=== PATIENT | female | born 1990 | race Caucasian/White ===

== ENCOUNTER 2020-02-04 00:46 | Outpatient (CLI) | payer OTHER, SELFPAY ==
[2020-02-04 19:22] LABS: SARS-CoV-2 RNA PCR Negative
== END 2020-02-04 00:47 | disposition home or self-care (01) ==
LOC: ANHCOVIDDT 00:47
PROVIDERS: PCP Physician Assistant Medical; Visit Provider Obstetrics & Gynecology
DX: Z01.812 Encounter for preprocedural laboratory examination (principal); Z11.59 Encounter for screening for other viral diseases
CPT/HCPCS: 87635; C9803; U0003

== ENCOUNTER 2020-02-04 09:03 | Outpatient (CLI) | payer OTHER, SELFPAY ==
[2020-02-04 09:26] LABS: Hematocrit 42.6 % (37.0-47.0); Hemoglobin 14.1 g/dL (12.0-15.0)
== END 2020-02-04 09:04 | disposition home or self-care (01) ==
LOC: ANHSURGERY 09:04
PROVIDERS: PCP Physician Assistant Medical; Visit Provider Obstetrics & Gynecology
DX: O02.1 Missed abortion (principal); Z3A.00 Weeks of gestation of pregnancy not specified
CPT/HCPCS: 36415; 85014; 85018; 86900; 86901

== ENCOUNTER 2020-02-07 02:08 | Day surgery (SDC) | payer OTHER, SELFPAY ==
--- NOTE | 2020-02-03 14:35 | PM.IMHP ---
H&P: HPI History of Present Illness Chief complaint: Missed Ab Narrative: Alyssa Bell is a 29 year old female who is 12 weeks since her last menstrual period presents with a missed AB. She was offered suction dilatation curettage. Risks and benefits were reviewed and Review of Systems Review of Systems: All systems reviewed & are unremarkable except as noted in HPI and below Meds Home Medications and Allergies Allergies Allergy/AdvReac Type Severity Reaction Status Date / Time gluten Allergy Severe Other Verified 01/06/18 11:14 Exam Const: General: no acute distress Eyes: General: appearance normal, both eyes and all related structures Neck: Neck: supple and no JVD Thyroid: thyroid normal Resp: Effort & Inspection: normal respiratory effort Auscultation: clear to auscultation bilaterally Cardio: Rate: regular rate Rhythm: regular rhythm GI: Inspection: non-distended GI Palp: Yes Soft to palpation, No Tenderness to palpation present (GI) and No Guarding due to palpation present (GI) Auscultation: normal bowel sounds : General: Yes bladder normal to inspection External Female Exam: normal external appearance Speculum Exam - Vagina: normal appearance of the vagina Speculum Exam - Cervix: normal appearance of the cervix Bimanual exam- vagina & uterus: enlarged Bimanual Exam- Adnexa, other: no masses Skin: General skin exam: no rashes or lesions noted Extrem: General: normal to inspection and no edema Psych: Mental Status: mental status grossly normal Affect: normal affect Assessment and Plan Additional Plan impression: 1St trimester missed AB Plan: Suction dilatation curettage
[2020-02-03 15:26] VITALS: BMI 23.8
--- NOTE | 2020-02-07 06:40 | WPDHPUPDATE1 ---
History and Physical Update Update Date/Time: 02/07/20 06:40 History and Physical has been reviewed, including an updated exam of the patient. There are NO changes in the patient's condition. Risks, benefits, and alternatives have been discussed and questions answered. Patient agrees to proceed with procedure.
--- NOTE | 2020-02-07 07:22 | P.PNAN_ITS ---
Anes - Initial Pre Proc Eval Procedure: Operation Date: 02/07/20 09:45 Proposed Procedures p Suction Dilation And Curettage - Sandro Pruitt MD Date/Time: 02/07/20 07:22 Surgeon: Sandro Pruitt MD Pre Op Diagnosis: Missed Ab Patient Data Age: 29 Gender: F Height: 1.7 m Weight: 68.95 kg Allergies Allergy/AdvReac Type Severity Reaction Status Date / Time gluten Allergy Severe Other Verified 02/07/20 08:11 Home Medications Medication Instructions Recorded Confirmed Type hydrocodone-acetaminophen [[place]] 1 tablet PO Q4H PRN #20 tablet 02/07/20 Rx Patient hx anesthesia problems: none Family hx anesthesia problems: none PMFSH Past Medical History Medical History (Updated 02/07/20 @ 07:23 by Sebastian Talley MD) Anemia Mitral valve prolapse Social History Social History Years smoked: 6 Smoking status: Current every day smoker Tobacco type: cigarettes Living arrangements: with family Gender identity (if verbalized by the patient): Female Spiritual care concerns: No Anes - Eval Final PreProcedure Day of Procedure 02/07/20 07:22 Patient weight: normal Heart: regular rate and rhythm Lungs: clear to auscultation and normal air movement Airway: Mallampati scale class II Neurological: alert and oriented Last oral intake: >/= 8 hours ASA classification: I Emergent: no Anesthetic plan: proceed Anesthesia type and monitoring: general GIVS Informed Consent: The patient's anesthetic plan and its attendant risks and benefits were discussed with the patient/family/POA. Questions were solicited and answers provided to the satisfaction of the patient/family/POA.
[2020-02-07 07:53] VITALS: BP 108/85; PULSE 96; RESP 20; TEMP 36.8; O2SAT 100
[2020-02-07] MEDS: LACTATED RINGERS 1,000 ML 30 ML IV CONT (08:30)
[2020-02-07] MEDS: ACETAMINOPHEN 500 MG TABLET 1000 MG PO (08:30)
[2020-02-07] MEDS: KETOROLAC 30 MG/ML VIAL (*BKC) 15 MG IV PUSH (09:33)
--- NOTE | 2020-02-07 09:40 | PM.PROC ---
Procedure Note - Detailed Date of procedure: 02/07/20 Pre-op diagnosis: Missed Ab Surgeon: Sandro Pruitt MD Postop diagnosis: Missed AB Procedure: Suction dilatation curettage Anesthesia: IV sedation local Complications: None Findings: Products of conception. Uterus sounded to 12cm EBL: 50cc Description procedure: The patient was prepped draped in the normal sterile fashion and placed in the dorsal lithotomy position. Under excellent IV sedation weighted speculum placed in posterior fornix of vagina. Anterior lip of the cervix was grasped with a single-tooth tenaculum. 2.5cc of 1% xylocaine anesthesia placed at 2, 4, 8, 10:00 a.m. of the cervix. Uterus sounded to 12cm. Serial dilatation with fragmented dilators performed followed by passes of the 12. Suction curette. A large amount of placental and tissue was removed. When a good grating sound was heard the instruments removed. All sponge, needle, instrument counts were correct. There were no immediate complications
[2020-02-07 09:42] VITALS: BP 98/61; PULSE 79; RESP 20; O2SAT 100
[2020-02-07 10:15] VITALS: BP 97/55; PULSE 65; RESP 14
[2020-02-07 10:38] VITALS: BP 99/59; PULSE 69; RESP 14
== END 2020-02-07 10:45 | disposition home or self-care (01) ==
PROVIDERS: PCP Physician Assistant Medical; Visit Provider Obstetrics & Gynecology
PROC: (CPT 59820; principal; 2020-02-07 09:45)
DX: O02.1 Missed abortion (principal); Z3A.12 12 weeks gestation of pregnancy; I34.1 Nonrheumatic mitral (valve) prolapse; F17.210 Nicotine dependence, cigarettes, uncomplicated; Z79.891 Long term (current) use of opiate analgesic
CPT/HCPCS: 59820; 36415; 85014; 85018; 86900; 86901; 87635; 88305; A9270; C9803; J1885; J2250; J2704; J3010; J7120; U0003

== ENCOUNTER 2022-06-13 15:40 | Inpatient (IN) | payer OTHER, SELFPAY ==
[2022-06-13] VITALS (107 sets, daily range): BP systolic 113–130; BP diastolic 62–105; PULSE 66–107; RESP 16; TEMP 36.6–36.9; O2SAT 94–100; BMI 32.3
--- NOTE | 2022-06-13 16:24 | LDADM ---
This patient, Alyssa Bell, was admitted to Labor/Delivery/Recovery [facility] on 06/13/22 at 15:40. Plans for labor, pain management and were discussed with patient. Patient/family oriented to hospital policies and general routines including ID bracelet, bed and alarms, visiting hours, pain management, procedures, bathroom and other care routines, personal items, smoking policy, room service/diet and guest tray routines, security routines, and visiting hours. Patient/Family are encouraged to report perceived risks to care and to ask questions if they do not understand what they are told or what they should do. See OBIX for further documentation.
[2022-06-13 16:34] LABS: Basophils Percent Auto 0.2 % (0.2-1.2); Eosinophils Absolute Auto 0.1 K/mm3 (0-0.3); Eosinophils Percent Auto 0.4 % (0-4.4); Hematocrit 35.8 % (37.0-47.0); Hemoglobin 11.4 g/dL (12.0-15.0); Immature Granulocyte Percent A 0.8 % (0-0.5); Lymphocytes Absolute Auto 1.23 K/mm3 (0.9-3.2); Lymphocytes Percent Auto 9.7 % (18.3-44.2); Mean Corpuscular HGB Conc 31.8 g/dl (32-36); Mean Corpuscular Hemoglobin 27.7 pg (26-34); Mean Corpuscular Volume 87.1 fl (80-100); Mean Platelet Volume 9.3 fl (7.4-10.4); Monocytes Absolute Auto 0.7 K/mm3 (0.1-0.6); Monocytes Percent Auto 5.6 % (2.6-8.5); Neutrophils Absolute Auto 10.6 K/mm3 (1.3-6.7); Neutrophils Percent Auto 83.3 % (45.5-73.1); Platelet Count Result 382 k/mm3 (150-375); Red Blood Count 4.11 M/mm3 (4.2-5.4); Red Cell Distribution Width 13.7 % (11.5-14.5); White Blood Count 12.7 K/mm3 (4.5-10.0)
[2022-06-13] MEDS: LACTATED RINGERS 1,000 ML 125 ML IV CONT (16:42)
[2022-06-13] MEDS: OXYTOCIN 30 UNITS/NS 500 ML 30 UNITS/500 ML BAG IV CONT (16:43)
--- NOTE | 2022-06-13 17:08 | WPDANESEPP ---
Anes - Eval Pre Procedure Procedure: labor epidural Date/Time: 06/13/22 17:08 Pre Op Diagnosis: Induction of Labor Patient Data Age: 31 Gender: F Height: Weight: Last Vital Signs Pulse 97 06/13/22 17:00 BP 123/78 06/13/22 17:00 Pulse Ox 98 06/13/22 17:06 O2 Del Method Room Air 06/13/22 16:45 Allergies Allergy/AdvReac Type Severity Reaction Status Date / Time gluten Allergy Severe Other Verified 05/29/22 14:42 Home Medications Medication Instructions Recorded Confirmed Type prenat.vits,clare,[id number] 1 tablet PO DAILY 05/01/22 06/13/22 History Laboratory Tests 06/13/22 06/13/22 06/13/22 16:16 16:16 16:16 WBC 12.7 K/mm3 H K/mm3 (4.5-10.0) RBC 4.11 M/mm3 L M/mm3 (4.2-5.4) Hgb 11.4 g/dL L g/dL (12.0-15.0) Hct 35.8 % L % (37.0-47.0) MCV 87.1 fl fl (80-100) MCH 27.7 pg pg (26-34) MCHC 31.8 g/dl L g/dl (32-36) RDW 13.7 % % (11.5-14.5) Plt Count 382 k/mm3 H k/mm3 (150-375) MPV 9.3 fl fl (7.4-10.4) Immature Gran % (Auto) 0.8 % H % (0-0.5) Neut % (Auto) 83.3 % H % (45.5-73.1) Lymph % (Auto) 9.7 % L % (18.3-44.2) [place] % (Auto) 5.6 % % (2.6-8.5) Eos % (Auto) 0.4 % % (0-4.4) Baso % (Auto) 0.2 % % (0.2-1.2) Lymph # (Auto) 1.23 K/mm3 K/mm3 (0.9-3.2) [place] # (Auto) 0.7 K/mm3 H K/mm3 (0.1-0.6) Eos # (Auto) 0.1 K/mm3 K/mm3 (0-0.3) Baso # (Auto) 0.0 K/mm3 K/mm3 (0.0-0.1) Abs Immat Gran (auto) 0.10 K/mm3 H K/mm3 (0.00-0.031) Absolute Neuts (auto) 10.6 K/mm3 H K/mm3 (1.3-6.7) Absolute Nucleated RBC 0.0 K/mm3 K/mm3 (0.0-0.012) Nucleated RBC % 0.0 % % (0.0-0.2) RPR Pending Blood Type O Positive Antibody Screen Pending Patient hx anesthesia problems: none Family hx anesthesia problems: none Results Review: All pre-operative results and documents have been reviewed as part of the pre-operative evaluation. [facility] Past Medical History Medical History Anemia Mitral valve prolapse Family History Family History Grandparent Alzheimer disease Grandparent Cancer Mother Cerebrovascular accident Father Mitral valve prolapse History of open heart surgery Social History Social History Years smoked: 6 Smoking status: Current every day smoker Tobacco type: cigarettes Substance use: never Gender identity (if verbalized by the patient): Female Spiritual care concerns: No Exam Day of Procedure 06/13/22 17:08 Patient weight: normal Heart: regular rate and rhythm Lungs: normal air movement Airway: Mallampati scale Neurological: alert and oriented
[2022-06-13] MEDS: ONDANSETRON INJ 4 MG/2 ML VIAL IV PUSH (23:08)
[2022-06-14] VITALS (147 sets, daily range): BP systolic 93–145; BP diastolic 51–103; PULSE 62–143; RESP 16–20; TEMP 36.4–37.4; O2SAT 95–100
[2022-06-14] MEDS: LACTATED RINGERS 1,000 ML 125 ML IV CONT ×2 (01:07→08:20)
[2022-06-14] MEDS: fentaNYL CITRATE INJ (*CRX) 100 MCG/2 ML VIAL 50 MCG IV PUSH ×3 (03:43→09:05)
--- NOTE | 2022-06-14 06:06 | PM.IMHP ---
H&P: HPI History of Present Illness Date/Time: 06/14/22 06:06 Chief Complaint: induction of labor Narrative: this is a 31 year 3 para 1 last menstrual period was 09/13/2021, EDC is 06/20/2022. Who presents at 39 weeks gestation for induction of labor She has an early ultrasound at 10 weeks confirming dates. Her has been uncomplicated PMFSH Past Medical History Medical History Anemia Mitral valve prolapse Family History Family History Grandparent Alzheimer disease Grandparent Cancer Mother Cerebrovascular accident Father Mitral valve prolapse History of open heart surgery Social History Social History Years smoked: 8 Smoking status: Former smoker Tobacco type: cigarettes Substance use: never Lack of Transportation: No Lack of Food: Never True Current Housing: I Have Housing Concerned About Future Housing: No Difficulty Paying Gas/Electric Bills: No Difficulty Paying for Meds: No Currently Unemployed: No Education: Trade/Vocational Certificate Difficulty w/ Childcare or Family Care: No Gender identity (if verbalized by the patient): Female Spiritual care concerns: No Meds Home Medications and Allergies Home Medications Medication Instructions Recorded Confirmed Type prenat.vits,clare,[id number] 1 tablet PO DAILY 05/01/22 06/13/22 History Allergies Allergy/AdvReac Type Severity Reaction Status Date / Time gluten Allergy Severe Other Verified 05/29/22 14:42 Vital Signs Vital Signs - 24 hr 06/13/22 15:55 06/13/22 15:56 06/13/22 16:00 Temperature Pulse Rate 107 H 103 H Respiratory Rate Blood Pressure 122/81 130/83 Pulse Oximetry 99 98 Oxygen Delivery 06/13/22 16:05 06/13/22 16:10 06/13/22 16:14 Temperature Pulse Rate Respiratory Rate Blood Pressure Pulse Oximetry 99 99 100 Oxygen Delivery 06/13/22 16:15 06/13/22 16:19 06/13/22 16:24 Temperature Pulse Rate 100 Respiratory Rate Blood Pressure 119/79 Pulse Oximetry 98 98 Oxygen Delivery 06/13/22 16:29 06/13/22 16:30 06/13/22 16:31 Temperature Pulse Rate 101 H Respiratory Rate Blood Pressure 130/105 H Pulse Oximetry 98 99 Oxygen Delivery 06/13/22 16:34 06/13/22 16:36 06/13/22 16:41 Temperature Pulse Rate 95 Respiratory Rate Blood Pressure 122/74 Pulse Oximetry 98 98 Oxygen Delivery 06/13/22 16:43 06/13/22 16:46 06/13/22 16:51 Temperature Pulse Rate 97 Respiratory Rate Blood Pressure 121/77 Pulse Oximetry 98 98 Oxygen Delivery 06/13/22 16:56 06/13/22 17:00 06/13/22 17:01 Temperature Pulse Rate 97 Respiratory Rate Blood Pressure 123/78 Pulse Oximetry 98 98 Oxygen Delivery 06/13/22 17:06 06/13/22 17:11 06/13/22 17:16 Temperature Pulse Rate Respiratory Rate Blood Pressure Pulse Oximetry 98 98 98 Oxygen Delivery 06/13/22 17:21 06/13/22 16:44 06/13/22 17:26 Temperature 98.5 F Pulse Rate Respiratory Rate Blood Pressure Pulse Oximetry 98 99 Oxygen Delivery 06/13/22 17:30 06/13/22 17:31 06/13/22 17:36 Temperature Pulse Rate 99 Respiratory Rate Blood Pressure 124/81 Pulse Oximetry 98 98 Oxygen Delivery 06/13/22 17:41 06/13/22 17:46 06/13/22 17:51 Temperature Pulse Rate Respiratory Rate Blood Pressure Pulse Oximetry 99 99 98 Oxygen Delivery 06/13/22 17:56 06/13/22 18:00 06/13/22 18:01 Temperature Pulse Rate 99 Respiratory Rate Blood Pressure 129/89 Pulse Oximetry 99 99 Oxygen Delivery 06/13/22 18:26 06/13/22 18:31 06/13/22 18:36 Temperature Pulse Rate 100 Respiratory Rate Blood Pressure 118/77 Pulse Oximetry 100 98 98 Oxygen Delivery
[2022-06-14 09:04] LABS: Rapid Plasma Reagin Non-Reactive (NonReactive)
--- NOTE | 2022-06-14 12:32 | PM.OBPRVD ---
OB - Delivery Note Procedure Delivery date: 06/14/22 Procedure: mil Induction method: AROM Delivery augmentation: Pitocin Delivery monitor: External FHT Route of delivery: Episiotomy description: None Laceration Description: Perineal - 1st Degree Delivery repair: vicryl Specimen: No Quantitative Blood Loss (ml): 59 Anesthesia type: Epidural Disposition: Floor [place] Baby Date of : 06/14/22 Time of : 12:20 Weeks of gestation at delivery: 39 Infant gender: Male Weight (pounds): 7 Weight (ounces): 4 presentation: vertex position: Right Occiput Anterior Placenta delivery description: Spontaneous Cord Vessel Description: 3 Vessels and Delayed Cord Clamping score one minute: 8 score five minutes: 9
[2022-06-14] MEDS: BENZOCAINE 20% AER SPR (*SP) 56 GM CAN 1 SPRAY TOPICAL (14:50)
[2022-06-14] MEDS: WITCH HAZEL 40 PADS 1 PAD TOPICAL (14:50)
[2022-06-14] MEDS: DOCUSATE SODIUM 100 MG CAPSULE PO (20:13)
[2022-06-14] MEDS: ACETAMINOPHEN 325 MG TABLET 650 MG PO (20:13)
[2022-06-15] MEDS: IBUPROFEN 600 MG TABLET PO ×2 (01:08→09:44)
[2022-06-15 04:30] VITALS: BP 112/72; PULSE 88; RESP 16; TEMP 36.8
[2022-06-15] MEDS: ACETAMINOPHEN 325 MG TABLET 650 MG PO (04:32)
[2022-06-15 05:17] LABS: Hematocrit 29.9 % (37.0-47.0); Hemoglobin 9.5 g/dL (12.0-15.0)
--- NOTE | 2022-06-15 07:44 | WPDANLDPN2 ---
Anes-Prog Note L&D Date/Time: 06/15/22 07:44 Comfortable throughout: delivery Neuraxial method: epidural Epidural/Spinal procedure site: clean & non-tender Neuro status: Neuro function grossly intact. Cardiovascular status: normal Respiratory status: normal Airway patency: baseline Mental status: baseline Post-Op hydration status: normal Vital Signs: Last Vital Signs Temp 36.8 C 06/15/22 04:30 Pulse 88 06/15/22 04:30 Resp 16 06/15/22 04:30 BP 112/72 06/15/22 04:30 Pulse Ox 99 06/14/22 17:10 O2 Del Method Room Air 06/14/22 20:10 Pain score (VAS): <3 I/O: Intake & Output 06/14/22 06/14/22 06/15/22 15:59 23:59 07:59 Intake Total 1000 500 Output Total 69 Balance 931 500 Post-procedural complaints: none Patient feedback: Patient satisfied with anesthetic care.
--- NOTE | 2022-06-15 08:52 | PM.DS ---
DS: Admitting Diagnosis Discharge Date 06/15/2022 Admitting Diagnosis term DS: Discharge Diagnosis Discharge Diagnosis (1) : Code(s): Z34.90 - Encounter for supervision of normal , unspecified, unspecified trimester Status: Acute DS: Summary Hospital Course Reason for hospitalization: induction of labor at term Hospital Course: this is a 3 para 1 who presented at 39 weeks gestation for induction of labor. She underwent spontaneous vaginal delivery which was unremarkable. Her hospital course unremarkable. She remained afebrile. She was up, voiding without difficulty, ambulating, generally without complaints. Time Spent with Patient Time attestation: Total time spent providing and/or coordinating discharge services: DS: Data Data Completed and Pending Labs on day of discharge: Labs from last 24 hours 06/15/22 06/13/22 04:40 16:16 Hgb 9.5 L Hct 29.9 L RPR Non-reactive Discharge Plan Discharge Attending physician on discharge: Sandro Mena Discharging Clinician: Sandro Mena Patient Disposition: Home, Self-Care Activity: may shower, may drive after 2 weeks and pelvic rest Diet: heart healthy Patient Instructions: Antibiotic Form Stand Alone Forms: General Discharge Information Follow-up/Referrals: Sandro Mena MD [Physician] - Discharge Medications: Continued prenat.vits,clare,[id number] Tablet 1 tablet PO DAILY Date of admission: 06/13/22 15:40 Primary Care Provider: Estelle Collins I. Admitting Provider: Sandro Mena Attending physician on admission: Sandro Mena Condition: Stable
[2022-06-15 09:40] VITALS: BP 104/65; PULSE 95; RESP 18; TEMP 36.6; O2SAT 100
[2022-06-15] MEDS: POLYSACCHARIDE IRON COMPLEX 150 MG CAPSULE PO (09:44)
[2022-06-15] MEDS: DOCUSATE SODIUM 100 MG CAPSULE PO (09:44)
--- NOTE | 2022-06-15 10:38 | PC.NURSE ---
Patient viewed the discharge video Mother & Baby Care, The First Two Weeks . Patient was given the opportunity and encouraged to ask questions. Patient verbalized understanding of information shared and has been given the mother/baby guide for home reference.
[2022-06-17 09:16] VITALS: BP 125/81; PULSE 88; RESP 20; TEMP 36.6; O2SAT 98
== END 2022-06-15 13:50 | disposition home or self-care (01) | DRG 807 ==
LOC: ANHLDR 06-14 13:41 → ANHOB2 06-14 16:14
PROVIDERS: Admitting Provider Obstetrics & Gynecology; PCP Physician Assistant Medical; Visit Provider Obstetrics & Gynecology
DX: O99.02 Anemia complicating childbirth (principal); Z37.0 Single live birth; Z3A.39 39 weeks gestation of pregnancy; D64.9 Anemia, unspecified; O70.0 First degree perineal laceration during delivery
CPT/HCPCS: 36415; 85014; 85018; 85025; 86592; 86850; 86900; 86901; A9270; J2405; J2590; J2795; J3010; J7120